=== PATIENT | male | born 1935 | race Caucasian/White ===

== ENCOUNTER 2016-11-27 17:18 | Inpatient (IN) | payer MEDICARE ==
[~2016-11-27 17:18] MED LIST: ADULT LOW DOSE81 M1 PO; ANORO ELLIPTA1 EAC1 IH; ASPIRIN81 MG PO; BRILINTA90 M1 PO; CHEMO; COREG3.125 M1 PO; CYMBALTA30 M1 PO; FLOMAX0.4 M1 PO; FLOMAX0.4 MG PO; GLIMEPIRIDE2 M1 PO; GLIMEPIRIDE2 MG PO; ISOSORBIDE MONO30 M4 PO; LIDOCAINE VISCOUS SSW; MAGIC MOUTH WASH; MIRTAZAPINE30 M2 PO; MOBIC15 M1 PO; NITROGLYCERIN0.4 M2 SL; NYSTATIN100000 UNI SSW; PRAVACHOL40 M1 PO; PRINIVIL10 M1 PO; PRINIVIL10 MG PO; PROSCAR5 MG PO; PROTONIX40 M2 PO
[2016-11-27 21:30] LABS: BASO % 0.4 % (0-2); EOS % 6.6 % (0-7); EOSINOPHIL ABSOLUTE COUNT 0.5 tho/cmm (0.0-0.7); HCT-HEMATOCRIT 35.5 % (36.0-53.5); HGB-HEMOGLOBIN 12.3 gm/dl (13.5-17.0); IMMATURE GRANULOCYTES ABSOLUTE 0.08 tho/cmm (0-0.03); LYMPH % 13.3 % (20-45); MCH (MEAN CORPUSCULAR HGB) 34.2 pg (28.0-32.0); MCHC MEAN CORPUSCULAR HGB CONC 34.6 % (32.0-36.0); MCV (MEAN CELL VOLUME) 98.6 fl (82.0-96.0); MEAN PLATELET VOLUME 10.3 cmc (9.4-12.4); MONOCYTE ABSOLUTE COUNT 0.3 tho/cmm (0.0-1.2); NEUTROPHIL ABSOLUTE COUNT 5.7 tho/cmm (1.6-8.0); NEUTROPHIL-AUTOMATED 5.7 tho/cmm (1.6-8.0); NEUTROPHILS % 74.7 % (40-80); PLATELET COUNT 187 tho/cmm (150-450); RED CELL DISTRIBUTION WIDTH 13.1 % (12.4-16.4); WHITE BLOOD COUNT 7.7 tho/cmm (4.0-10.0)
[2016-11-27 21:35] LABS: PROTHROMBIN TIME 11.1 SECONDS (9.0-13.6)
[2016-11-27 21:46] LABS: ALB/GLOB RATIO 0.8 (0.8-2.0); ALBUMIN 3.1 g/dl (3.5-5.0); ALKALINE PHOSPHATASE 74 U/L (33-138); ALT/SGPT 15 U/L (12-78); ANION GAP 13 mmol/L (0-20); AST/SGOT 17 U/L (10-40); BILIRUBIN,TOTAL 0.6 mg/dl (0.0-1.5); BLOOD UREA NITROGEN 35 mg/dl (6-24); CALCIUM 8.9 mg/dl (8.5-10.5); CARBON DIOXIDE-VENOUS 28 mmol/L (22-32); CHLORIDE 103 mmol/l (96-110); GLUCOSE 140 mg/dL (70-110); MAGNESIUM 2.2 mg/dl (1.3-2.6); POTASSIUM 4.4 mmol/L (3.7-5.1); SODIUM 140 mmol/L (135-145); eGFR VALUE FOR BLACK 54 mL/Min
[2016-11-28 12:42] LABS: URINE BILIRUBIN NEGATIVE (NEG); URINE BLOOD SMALL (NEG); URINE GLUCOSE (UA) NEGATIVE (NEG); URINE KETONE NEGATIVE (NEG); URINE LEUKOCYTE ESTERASE NEGATIVE (NEG); URINE NITRITE NEGATIVE (NEG); URINE PROTEIN NEGATIVE (NEG)
[2016-11-28 12:44] LABS: URINE APPEARANCE CLEAR; URINE COLOR PALE YELLOW
[2016-11-28 12:50] LABS: URINE EPITHELIAL CELLS 0 /[HPF] (0-10); URINE RBC 0 /[HPF] (0-5); URINE WBC 0 /[HPF] (0-5)
[2016-11-28 12:51] LABS: URINE OTHER VOLUME 4 ML
== END 2016-11-29 14:55 | DRG 536 ==
LOC: 5EB 17:18
PROVIDERS: Internal Medicine; Registered Nurse; ADMIT Hospitalist
DX: S72.112A Displaced fracture of greater trochanter of left femur, initial encounter for closed fracture (principal); E11.65 Type 2 diabetes mellitus with hyperglycemia; M89.9 Disorder of bone, unspecified; I25.10 Atherosclerotic heart disease of native coronary artery without angina pectoris; I10 Essential (primary) hypertension; M16.0 Bilateral primary osteoarthritis of hip; K21.9 Gastro-esophageal reflux disease without esophagitis; R63.4 Abnormal weight loss; M21.379 Foot drop, unspecified foot; F17.220 Nicotine dependence, chewing tobacco, uncomplicated; W01.0XXA Fall on same level from slipping, tripping and stumbling without subsequent striking against object, initial encounter; Z91.81 History of falling; Z95.5 Presence of coronary angioplasty implant and graft; Z86.718 Personal history of other venous thrombosis and embolism; Z79.01 Long term (current) use of anticoagulants; Z79.84 Long term (current) use of oral hypoglycemic drugs; Z79.899 Other long term (current) drug therapy; Z85.810 Personal history of malignant neoplasm of tongue; Z92.21 Personal history of antineoplastic chemotherapy; Z92.3 Personal history of irradiation
CPT/HCPCS: A9577; G8978-GP-CK; G8979-GP-CJ; G8980-GP-CK; G8987-GO-CK; G8988-GO-CJ; G8989-GO-CK; J7030; P9045